=== PATIENT | female | born 1985 | race Caucasian/White ===

== ENCOUNTER 2024-03-13 00:50 | Emergency (ER) | payer MEDICAID ==
[~2024-03-13] VITALS: Ht 157.5 cm; Wt 81.6 kg
[2024-03-13 00:55] VITALS: BP 130/80; PULSE 80; RESP 16; TEMP 97.8; O2SAT 99
[2024-03-13 02:44] VITALS: BP 130/80; PULSE 80; RESP 16; TEMP 97.8; O2SAT 99
== END 2024-03-13 02:44 | disposition home or self-care (01) ==
LOC: MED 00:50
DX: R05.9 Cough, unspecified (principal); R51.9 Headache, unspecified; R09.89 Other specified symptoms and signs involving the circulatory and respiratory systems
CPT/HCPCS: 99281